=== PATIENT | male | born 1945 | race Caucasian/White ===

== ENCOUNTER → 2019-01-12 08:24 | Outpatient (CLI) | payer MEDICARE, BC, SELFPAY ==
--- NOTE | 2019-01-12 | DI.MRI.S_ITS ---
PROCEDURE: MR STROKE Pre- and post-contrast brain MRI, non-contrast brain MR angiogram, pre- and postcontrast neck MR angiogram INDICATIONS: Headache TECHNIQUE: Brain: Noncontrast axial T1 spin echo, axial T2 fast spin echo, sagittal and axial FLAIR, coronal T2 fast spin echo, axial gradient echo, axial diffusion and ADC through the brain. After the administration of contrast, axial 3D VIBE of the cranial vasculature and brain. Brain MRA: Non-contrast 3-D time of flight MR angiogram, with multiple nytlhfk-nwzctvnlw-nbbffykiij (MIP) reformats performed. Neck MRA: Axial and sagittal TruFISP through the neck. Coronal dynamic MR angiogram during administration of contrast in the arterial and venous phases, with 3-dimenstional dcfhmnc-kwythtfpa-bwnugtufbi (MIP) reformats constructed from subtraction images. COMPARISON: None. FINDINGS: Image quality: Excellent. BRAIN: CSF spaces: Ventricles are normal in size and shape. Basal cisterns are patent. No extra-axial fluid collections. Brain: No intracranial bleeds or mass effects. Mild encephalomalacia within the right inferolateral cerebellum. Kwan-white matter interface is normal. Diffusion weighted images demonstrate a 5 mm diameter focus of elevated signal intensity within the left inferomedial cerebellum which demonstrates low ADC map and mildly increased FLAIR signal, consistent with a subacute infarct.. Moderate diffuse cerebral volume loss. Moderate degree of patchy high FLAIR signal within the periventricular and subcortical white matter. Brainstem appears normal. Normal intravascular flow voids are present. There is a region of multinodular enhancement within the right inferomedial cerebellum, measuring roughly 23 mm oblique transverse by 5 mm anteroposterior by 6 mm craniocaudal, which demonstrates mild FLAIR signal elevation. Skull and face: Calvarial marrow signal is normal. Orbits appear normal. Sinuses: Mild mucosal thickening within the bilateral maxillary sinuses. Moderate mucosal thickening within the left ethmoid air cells. Mild mucosal thickening within the bilateral frontal sinuses. BRAIN MR ANGIOGRAM: Anterior circulation: Intracranial internal carotid arteries are normal in size and enhancement. The flow within the paired anterior cerebral arteries is normal and symmetric. The flow within the middle cerebral arteries is normal and symmetric. The anterior communicating artery is seen. No stenoses, occlusions, or aneurysms. Posterior circulation: The visualized portions of the vertebral arteries demonstrate normal caliber, and join to form a normal appearing basilar artery. Near origin of the left posterior cerebral artery. The flow within the posterior cerebral arteries is normal and symmetric. No stenoses, occlusions, or aneurysms. NECK MR ANGIOGRAM: Carotids: Great vessels demonstrate a conventional anatomy as they arise from the aortic arch. The origins of the common carotid arteries appear patent. The calibers and courses of both common carotid arteries are normal. 50% origin stenosis of the right internal carotid artery is present. Left internal carotid artery is widely patent. Posterior circulation: The origins of the vertebral arteries appear patent. More superior portions of both vertebral arteries demonstrate normal course and caliber, and join to form a normal appearing basilar artery. Miscellaneous: Subclavian arteries appear patent. Pre-contrast images through the neck show no soft tissue abnormalities. IMPRESSION: BRAIN MRI: 1. 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 2. Nodular enhancement within the right inferomedial cerebellum, which is indeterminate. Given the coexisting left inferomedial cerebellar infarct, as well as the associated encephalomalacia within the right inferolateral cerebellum, this right cerebellar enhancement may indicate late post subacute infarct sequelae. Other considerations include arteriovenous malformation, and neoplasm. Followup brain MRI with and without intravenous contrast in 3 months is recommended to ensure resolution, and to exclude less likely, more aggressive etiologies. 3. Volume loss and small vessel ischemic disease. 4. Sinus disease. BRAIN MR ANGIOGRAM: Negative cerebral MR angiography. NECK MR ANGIOGRAM: 1. Roughly 50% right internal carotid artery stenosis. No left internal carotid artery stenosis. 2. Patent bilateral vertebral arteries. Dictated by: Chris España M.D. on 01/12/2019 at 8:48 Approved by: Chris España M.D. on 01/12/2019 at 9:09
== END ==
PROVIDERS: Visit Provider Family Medicine
DX: R51 Headache (principal); I63.9 Cerebral infarction, unspecified; I65.21 Occlusion and stenosis of right carotid artery; G93.89 Other specified disorders of brain; J32.8 Other chronic sinusitis
CPT/HCPCS: 70548; 70553; A9579